=== PATIENT | female | born 1985 | race Asian ===

== ENCOUNTER 2025-04-11 16:14 | Emergency (ER) | payer OTHER ==
[~2025-04-11] VITALS: Ht 154.9 cm; Wt 50.0 kg
[2025-04-11 16:18] VITALS: TEMP 98.2
[2025-04-11] MEDS ORDERED: 0.9% SODIUM CHLORIDE 10 ML SYRINGE IVP PRN (22:30)
[2025-04-11 23:03] VITALS: BP 130/77; PULSE 67; RESP 16; O2SAT 99
[2025-04-11 23:06] LABS: PLATELET COUNT (AUTO) 412 K/uL (150-450); RED BLOOD CELL COUNT(AUTO) 4.51 MIL/uL (4.00-5.20); RED CELL DISTRIBUTION WIDTH 12.7 % (11.5-14.5); WHITE BLOOD COUNT (AUTO) 6.9 K/uL (4.5-11.0)
[2025-04-11] MEDS: CLINDAMYCIN 600 MG/D5% WATER 50 ML IV ONE (23:19)
== END 2025-04-11 23:58 | disposition home or self-care (01) ==
LOC: EMS 16:14
DX: J34.0 Abscess, furuncle and carbuncle of nose (principal); Z88.0 Allergy status to penicillin
CPT/HCPCS: 99285; 96365; 70486; 84703; 85025; 87040; 36415; J3490; 80053; 83605